=== PATIENT | female | born 1975 | race Two or more races ===

== ENCOUNTER 2023-10-31 13:35 | Emergency (ER) | payer OTHER ==
[~2023-10-31] VITALS: Ht 167.6 cm; Wt 52.2 kg
[2023-10-31] MEDS ORDERED: SYNTHROID75 MCG PO (13:45)
[2023-10-31] MEDS ORDERED: TETANUS & DIPHTHERIA TOX,ADULT 0.5 ML VIAL IM ONE (14:00)
[2023-10-31] MEDS ORDERED: CEFTRIAXONE SODIUM 1,000 MG VIAL IV ONE (14:00)
== END 2023-10-31 16:06 | disposition home or self-care (01) ==
LOC: ER 13:35
DX: S91.341A Puncture wound with foreign body, right foot, initial encounter (principal); W26.8XXA Contact with other sharp object(s), not elsewhere classified, initial encounter; Y93.89 Activity, other specified; Y92.832 Beach as the place of occurrence of the external cause; E03.8 Other specified hypothyroidism